=== PATIENT | male | born 1980 | race Caucasian/White ===

== ENCOUNTER 2022-08-01 13:06 | Emergency (ER) | payer BC, SELFPAY ==
[2022-08-01 13:24] VITALS: BP 147/88; PULSE 94; RESP 18; TEMP 36.6; O2SAT 100; BMI 28.7
--- NOTE | 2022-08-01 13:42 | ED_ITS ---
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 He has not had a history of otitis media, had a cold last week, some of his work mates have been sick with illnesses and 1 had tinnitus. Chadd has noted some tinnitus and ringing as well. He is not on aspirin. Has taken ibuprofen as needed. No sore throat, no cough no other rigors or illness. Related Data Home Medications Medication Instructions Recorded Confirmed fexofenadine 180 mg tablet 180 mg PO DAILY 08/01/22 08/01/22 ([facility]) Allergies Allergy/AdvReac Type Severity Reaction Status Date / Time kwi Allergy Mild wheezy Uncoded 08/01/22 13:29 Review of Systems Status of ROS: Reports: 6 or more systems reviewed and unremarkable except as noted in History and below PFSH PFSH Social History Smoking Status: Never smoker Do you use any of these nicotine containing products: None Second hand tobacco smoke exposure: No How often do you have a drink containing alcohol: monthly or less How many standard drinks containing alcohol do you have on a typical day: 1 or 2 How often do you have six or more drinks on one occasion: Never AUDIT-C Alcohol total score: 1 Non-prescribed substance use: denies use Exam Narrative: Exam Narrative: Objective: Patient is no apparent distress Vital signs unremarkable and slightly elevated systolic pressure HEENT shows left otitis media mild with probable serous otitis Right ear drum shows serous otitis as well, but no redness or infection Throat is clear Const: Vital Signs, click to edit/add: Vital Signs - 24 hr 08/01/22 13:24 Temperature 97.8 F Pulse Rate [Right Pulse Oximeter] 94 Respiratory Rate 18 Blood Pressure [Ri ght Upper Arm] 147/88 H Pulse Oximetry 100 Oxygen Delivery Me thod Room Air Course Vital Signs Vital signs: Initial Vital Signs Temperature 97.8 F 08/01/22 13:24 Temperature Source Temporal Artery Scan 08/01/22 13:24 Pulse Rate 94 08/01/22 13:24 Respiratory Rate 18 08/01/22 13:24 Blood Pressure 147/88 H 08/01/22 13:24 Blood Pressure Mean 107 08/01/22 13:24 Blood Pressure Position Sitting 08/01/22 13:24 Pulse Oximetry 100 08/01/22 13:24 Oxygen Delivery Method 08/01/22 13:24 Vital Signs Temperature 97.8 F 08/01/22 13:24 Pulse Rate 94 08/01/22 13:24 Respiratory Rate 18 08/01/22 13:24 Blood Pressure 147/88 H 08/01/22 13:24 Pulse Oximetry 100 08/01/22 13:24 Oxygen Delivery Method 08/01/22 13:24 Temperature 97.8 F 08/01/22 13:24 Pulse Rate 94 08/01/22 13:24 Respiratory Rate 18 08/01/22 13:24 Blood Pressure 147/88 H 08/01/22 13:24 Pulse Oximetry 100 08/01/22 13:24 Oxygen Delivery Method 08/01/22 13:24 Medical Decision Making MDM Narrative Medical decision making narrative: Patient had a recent URI, now has issues with tinnitus as well as left otitis media and serous otitis bilaterally. He has amoxicillin he started home 875 will continue that b.i.d. for 7 days, Tylenol Advil as needed, if he notices diminished hearing or non improvement over the next few weeks would recommend appoint with our ENT doctor at the clinic. He was comfortable with that Discharge Plan Discharge Clinical Impression: Otitis media Patient Disposition: Home, Self-Care Condition: Stable Additional Instructions: Amoxicillin the patient has at home to complete a 7 day course, Advil and Tylenol as needed, observation, if continues to have hearing a issues or a sensation of diminished hearing recommended appoint with Dr. tyler in our ENT doctor at the clinic in [place]. Return to ED sooner problems or concerns Activity Level: No Restrictions Discharge Diet: Regular Prescriptions: No Action fexofenadine [[facility]] 180 mg tablet 180 mg PO DAILY Stand Alone Forms: [facility] Info Instructions
== END 2022-08-01 13:58 | disposition home or self-care (01) ==
LOC: ED 13:44
PROVIDERS: Emergency Provider Family Medicine
DX: H66.92 Otitis media, unspecified, left ear (principal)
CPT/HCPCS: 99282; 99283

== ENCOUNTER 2023-10-07 11:40 | Emergency (ER) | payer OTHER, SELFPAY ==
[2023-10-07 11:44] VITALS: BP 145/91; PULSE 87; RESP 18; TEMP 36.7; O2SAT 95; BMI 28.7
--- NOTE | 2023-10-07 12:11 | ED_ITS ---
HPI - General Adult General Chief complaint: Laceration/Wound Stated complaint: dog bite on finger Time Seen by Provider: 10/07/23 11:48 History of Present Illness HPI narrative: patient was bit on the right middle finger on the top of the knuckle happened today by a dog was wearing a mussel. was wearing a glove . was some bleeding. Immunizations up to date for dog. 42-year-old man presenting to the emergency department after being bit on the finger by dog. This is the right 3rd finger. 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 The dog was known to be anxious but he believes that this was particularly so as it was having some difficulty breathing. The dog was muzzled. Immunizations are up-to-date for himself as well as dog. Bleeding has been controlled. No functional deficit has been noted. He indicates that the glove did not actually tear. Related Data Home Medications Medication Instructions Recorded Confirmed cetirizine 10 mg capsule (Zyrtec) 10 mg PO DAILY PRN 10/07/23 10/07/23 Allergies Allergy/AdvReac Type Severity Reaction Status Date / Time kwi Allergy Mild wheezy Uncoded 08/01/22 13:29 Review of Systems Status of ROS: Reports: 6 or more systems reviewed and unremarkable except as noted in History and below PFSH PFS Social History Smoking Status: Never smoker Do you use any of these nicotine containing products: None Second hand tobacco smoke exposure: No How often do you have a drink containing alcohol: monthly or less How many standard drinks containing alcohol do you have on a typical day: 1 or 2 How often do you have six or more drinks on one occasion: Never AUDIT-C Alcohol total score: 1 Non-prescribed substance use: denies use service: No Exam Narrative: Exam Narrative: Pleasant. NAD. Calm. Dressed in scrubs. Examination of the right hand in question shows a 2 cm clean full dermal flap laceration, apex proximal located on the right 3rd dorsal middle phalanx. [place] just gets to the knuckle. Appears to have full strength to flexion and extension of the finger. Does not look to have been a crush injury. There is a slightly more than 8th inch in diameter what appears to be a blood blister at the tip of the finger as well. Following anesthesia and cleaning with further exploration I do not see any subcutaneous tissues exposed. Const: Vital Signs, click to edit/add: Vital Signs - 24 hr 10/07/23 11:44 Temperature 98.1 F Pulse Rate [Pulse Oximeter] 87 Respiratory Rate 18 Blood Pressure [Ri ght Upper Arm] 145/91 H Pulse Oximetry 95 Oxygen Delivery Me thod Room Air Documenting provider has reviewed patient's vital signs: yes Course Vital Signs Vital signs: Initial Vital Signs Temperature 98.1 F 10/07/23 11:44 Temperature Source Temporal Artery Scan 10/07/23 11:44 Pulse Rate 87 10/07/23 11:44 Respiratory Rate 18 10/07/23 11:44 Blood Pressure 145/91 H 10/07/23 11:44 Blood Pressure Mean 109 H 10/07/23 11:44 Blood Pressure Position Sitting 10/07/23 11:44 Pulse Oximetry 95 10/07/23 11:44 Oxygen Delivery Method Room Air 10/07/23 11:44 Vital Signs Temperature 98.1 F 10/07/23 11:44 Pulse Rate 87 10/07/23 11:44 Respiratory Rate 18 10/07/23 11:44 Blood Pressure 145/91 H 10/07/23 11:44 Pulse Oximetry 95 10/07/23 11:44 Oxygen Delivery Method Room Air 10/07/23 11:44 Temperature 98.1 F 10/07/23 11:44 Pulse Rate 87 10/07/23 11:44 Respiratory Rate 18 10/07/23 11:44 Blood Pressure 145/91 H 10/07/23 11:44 Pulse Oximetry 95 10/07/23 11:44 Oxygen Delivery Method Room Air 10/07/23 11:44 Medical Decision Making MDM Narrative Medical decision making narrative: This would benefit from repair. Though I also think that could be held in place with bandages. Given use of hands regularly though much more convenient and stable to suture. Anticipated suturing more loosely though without break in glove less likely contaminated. Placed partial ring block with bupivacaine. Needed to walk anesthesia distally a little bit to achieve full anesthesia. Final apex suture ultimately was felt a little. Placed total of 5 I believe interrupted 5-0 Ethilon sutures. Very good wound approximation. Bleeding controlled. Antibiotic ointment and Band- Aid placed. Dr. Crane also requested the blood blister to be popped. This was done simply with hypodermic needle and small amount of blood was expressed. After discussion with Dr. Crane, decided to prophylax with antibiotics. See patient discharge plan Discharge Plan Discharge Clinical Impression: Finger laceration, Blood blister, Dog bite Patient Disposition: Home, Self-Care Condition: Improved Additional Instructions: sutures out in 10-12 days. antibiotic ointment for 5 days and then to a dry dressing. ok to get wet but try not to soak while sutures are in. Elevate, ibuprofen, acetaminophen for comfort. Watch for spreading redness after 2 days accompanied by heat, swelling, marked increase in pain, purulent drainage. Prophylactic cephalexin from [facility]. Prescriptions: No Action Zyrtec 10 mg capsule 10 mg PO DAILY PRN Follow Up/Referrals: Provider,Not a Local [Primary Care Provider] - Stand Alone [facility] Info [facility]
--- NOTE | 2023-10-07 12:55 | ED.NURSE ---
is in to see patient.
== END 2023-10-07 13:36 | disposition home or self-care (01) ==
PROVIDERS: Emergency Provider Family Medicine
DX: S61.212A Laceration without foreign body of right middle finger without damage to nail, initial encounter (principal); S60.422A Blister (nonthermal) of right middle finger, initial encounter; W54.0XXA Bitten by dog, initial encounter
CPT/HCPCS: 12001; 99283; 99284